=== PATIENT | male | born 1995 | race African-American/Black ===

== ENCOUNTER 2018-08-13 23:30 | Emergency (ER) | payer OTHER ==
[2018-08-13] MEDS ORDERED: Tetan/Diph/Pertus SYR(Tdap)* 0.5 ML SYR(BOOSTRIX) use SYR IM ONE (23:48)
[2018-08-14] MEDS ORDERED: Lidocaine 1%* 5 ML VIAL INJ ONE (00:23)
[2018-08-14] MEDS ORDERED: Lidocaine 2% PF * 5 ML VIAL ONE (00:24)
[2018-08-14] MEDS ORDERED: Cephalexin CAP* 500 MG PO ONE (01:28)
--- NOTE | 2018-08-14 01:30 | ED ---
Laceration/Wound HPI - HPI Summary HPI Summary: Patient from correction complains of laceration to right cheek and behind right ear. Denies any other pain, injury, symptoms. Bleeding controlled. Tetanus status unknown. - History of Current Complaint Stated Complaint: LACERATION TO RIGHT CHEEK AND BEHIND R EAR Time Seen by Provider: 08/13/18 23:48 Hx Obtained From: Patient Mechanism of Injury: Sharp/Blunt Trauma Onset Severity: Mild Current Severity: None Pain Intensity: 0 Pain Scale Used: 0-10 Numeric Associated Signs & Symptoms: Negative - Allergy/Home Medications Allergies/Adverse Reactions: Allergies Allergy/AdvReac Type Severity Reaction Status Date / Time No Known Allergies Allergy Verified 08/13/18 23:39 PMH/Surg Hx/FS Hx/Imm Hx Endocrine/Hematology History: Denies: Hx Anticoagulant Therapy History: Denies: Hx Dialysis EENT History: Denies: Hx Deafness Infectious Disease History: No Infectious Disease History: Denies: Traveled Outside the [place] in Last 30 Days - Social History Alcohol Use: Rare Substance Use Type: Reports: None Smoking Status (MU): Former Smoker Review of Systems Constitutional: Negative Eyes: Negative ENT: Negative Cardiovascular: Negative Respiratory: Negative Gastrointestinal: Negative Genitourinary: Negative Musculoskeletal: Negative Skin: Other Neurological: Negative Psychological: Normal All Other Systems Reviewed And Are Negative: Yes Physical Exam - Summary Physical Exam Summary: Laceration to right cheek does not penetrate through to oral cavity. Laceration behind right ear does not contact ear. Normal range of motion of mouth. Triage Information Reviewed: Yes Vital Signs On Initial Exam: Initial Vitals Temp Pulse Resp BP Pulse Ox 98.5 F 68 16 122/76 96 08/13/18 23:34 08/13/18 23:34 08/13/18 23:34 08/13/18 23:34 08/13/18 23:34 Vital Signs Reviewed: Yes Appearance: Positive: Well-Appearing Skin: Positive: Warm Head/Face: Positive: Normal Head/Face Inspection Eyes: Positive: Normal ENT: Positive: Normal ENT inspection Neck: Positive: Supple Respiratory/Lung Sounds: Positive: Clear to Auscultation Cardiovascular: Positive: Normal Abdomen Description: Positive: Nontender Musculoskeletal: Positive: Normal Neurological: Positive: Normal Psychiatric: Positive: Normal AVPU Assessment: Alert - Eduin Coma Scale Best Eye Response: 4 - Spontaneous Best Motor Response: 6 - Obeys Commands Best Verbal Response: 5 - Oriented Coma Scale Total: 15 Procedures - Laceration/Wound Repair 1 Location: face - right cheek Description: Linear Anesthesia: Local, 2.0% Length, Depth and Shape: 9cmx 0.5cm Betadine Prep?: Yes Irrigated w/ Saline (ccs): 100 - saline plus chlorhexidine Laceration/Wound Explored: clean Debridement: minimal Number of Sutures: 20 - 6. 0 Ethilon Layer Closure?: No 2 Location: face Description: Linear Anesthesia: Local, 2.0% Length, Depth and Shape: 5cm x 0.5cm Betadine Prep?: Yes Irrigated w/ Saline (ccs): 100 - saline plus chlorhexidine Laceration/Wound Explored: clean Debridement: minimal Number of Sutures: 9 - 6. 0 Ethilon Layer Closure?: No Sterile Dressing Applied?: No Diagnostics - Vital Signs Vital Signs Temp Pulse Resp BP Pulse Ox 08/14/18 00:08 59 98 08/14/18 00:07 59 126/72 99 08/13/18 23:34 98.5 F 68 16 122/76 96 - Laboratory Lab Statement: Any lab studies that have been ordered have been reviewed, and results considered in the medical decision making process. Laceration Repair Course/Dx - Course Course Of Treatment: Patient from correction complains of laceration to right cheek and behind right ear. Denies any other pain, injury, symptoms. Bleeding controlled. Tetanus status unknown. Physical exam:Patient from correction complains of laceration to right cheek and behind right ear. Denies any other pain, injury, symptoms. Bleeding controlled. Tetanus status unknown. Two lacerations. Sutures placed. Tetanus booster given. Rx for Keflex. - Clinical Impression Provider Diagnoses: Laceration Discharge - Sign-Out/Discharge Documenting (check all that apply): Patient Departure - Discharge Plan Condition: Stable Disposition: HOME Prescriptions: Cephalexin CAP* [Keflex CAP*] 500 mg PO TID 10 Days #30 cap Patient Education Materials: Care For Your Stitches (ED), Laceration (ED), Facial Laceration (ED) Referrals: Shantel DRUMMOND,Aleksandra Delong [Primary Care Provider] - Additional Instructions: Sutures out in 5 days. Take antibiotics as directed. May wash with warm running water and soap. Do not submerge. Return to the ED for any new or worsening symptoms - Billing Disposition and Condition Condition: STABLE Disposition: Home
[2018-08-14 01:57] VITALS: BP 128/74
== END 2018-08-14 01:55 | disposition home or self-care (01) ==
LOC: ED 23:30
DX: S01.411A Laceration without foreign body of right cheek and temporomandibular area, initial encounter (principal); W26.9XXA Contact with unspecified sharp object(s), initial encounter; Y92.149 Unspecified place in prison as the place of occurrence of the external cause; Z23 Encounter for immunization; Z87.891 Personal history of nicotine dependence
CPT/HCPCS: 12016; 90471; 90715; 99282; A9270-GY